=== PATIENT | female | born 1940 | race Caucasian/White ===

== ENCOUNTER 2021-04-03 11:15 | Day surgery (SDC) | payer MEDICARE, BC ==
[~2021-04-03] VITALS: Ht 154.9 cm; Wt 70.0 kg
[~2021-04-03 11:15] MED LIST: ASPI-496 PO; ATEN50TA41 PO; ATOR40TA PO; CALC1CAP8 PO; CALC300T5 PO; CHOL200052 PO; FISH1CAP PO; FOLI0.8T5 PO; LEVO112T41 PO; LOSA1TAB25 PO; OXYC5TAB98 PO; TRAV5DRO EACHEYE; zinc PO
[2021-04-03] MEDS ORDERED: LEVO137T2 PO (12:28)
[2021-04-03] MEDS ORDERED: ROSU20TA2 PO (12:28)
[2021-04-03] MEDS ORDERED: DIPHENHYDRAMINE 50 MG/ML, 1ML IVPush ONE (12:30)
[2021-04-03] MEDS ORDERED: LATA7.5D EACHEYE (12:32)
[2021-04-03] MEDS ORDERED: TRAM50TA2 PO ×2 (12:32→12:58)
[2021-04-03] MEDS ORDERED: ASPI81TA45 PO (12:32)
[2021-04-03] MEDS ORDERED: IXEK80AU SQ (12:32)
[2021-04-03] MEDS ORDERED: ESZO3TAB28 PO (12:32)
[2021-04-03] MEDS ORDERED: ANAS1TAB49 PO (12:32)
[2021-04-03] MEDS ORDERED: FOLI0.8T5 PO (12:32)
[2021-04-03] MEDS ORDERED: NITR1PAT20 TD (12:32)
[2021-04-03] MEDS ORDERED: ZINC50CA PO (12:32)
[2021-04-03] MEDS ORDERED: DIPHENHYDRAMINE 50 MG/ML, 1ML ONE (12:41)
[2021-04-03] MEDS ORDERED: CHOL10003 PO (12:53)
[2021-04-03] MEDS ORDERED: CALC-534 PO (12:53)
[2021-04-03] MEDS ORDERED: TURM500C4 PO (12:53)
[2021-04-03] MEDS ORDERED: FENTANYL PF 100 MCG/2ML ONE (13:12)
[2021-04-03] MEDS ORDERED: MIDAZOLAM 1 MG/ML, 5ML ONE (13:12)
[2021-04-03] MEDS ORDERED: HEPARIN 1,000 UNITS/ML, 10ML ONE (13:12)
[2021-04-03] MEDS ORDERED: VERAPAMIL 2.5 MG/ML, 2ML ONE (13:12)
[2021-04-03] MEDS ORDERED: LIDOCAINE-MPF 1%, 5ML ONE (13:12)
[2021-04-03 13:32] LABS: BASOPHILS % (AUTO) 1 % (0-1); EOSINOPHILS % (AUTO) 3 % (1-7); LYMPHOCYTES % (AUTO) 17 % (22-44); MEAN CORPUSCULAR HEMOGLOBIN 31.3 pg (27.0-34.8); MEAN CORPUSCULAR HGB CONC 32.8 g/dL (32.4-35.8); MONOCYTES % (AUTO) 8 % (2-9); NEUTROPHILS % (AUTO) 72 % (42-75); RED BLOOD COUNT 5.21 x10^6/uL (3.82-5.3); RED CELL DISTRIBUTION WIDTH 14.6 % (9.6-15.2)
[2021-04-03 13:39] LABS: ANION GAP 5 mmol/L (5-15); CALCIUM 9.1 mg/dL (8.5-10.1); CHLORIDE 106 mmol/L (98-107); CREATININE 1.09 mg/dL (0.55-1.02)
[2021-04-03 14:20] LABS: PLATELET COUNT 122 x10^3/uL (130-400)
== END 2021-04-03 16:31 | disposition home or self-care (01) ==
LOC: CACL 11:15
PROVIDERS: ATTEND Internal Medicine Cardiovascular Disease
DX: R06.02 Shortness of breath (principal); I27.20 Pulmonary hypertension, unspecified; I10 Essential (primary) hypertension; J44.9 Chronic obstructive pulmonary disease, unspecified; E66.3 Overweight; Z68.31 Body mass index [BMI] 31.0-31.9, adult; Z79.82 Long term (current) use of aspirin; Z79.890 Hormone replacement therapy; Z79.891 Long term (current) use of opiate analgesic; Z79.899 Other long term (current) drug therapy; Z87.891 Personal history of nicotine dependence; Z88.8 Allergy status to other drugs, medicaments and biological substances; Z99.81 Dependence on supplemental oxygen
CPT/HCPCS: 36415; 80048; 83880; 85025; 93451; 99156; 99157; C1894; J1200; J2250; J3010; 82803; J1644